=== PATIENT | male | born 1960 | race Caucasian/White ===

== ENCOUNTER 2018-02-03 10:00 | Emergency (ER) | payer OTHER ==
[~2018-02-03] VITALS: Ht 177.8 cm; Wt 74.8 kg
[2018-02-03] MEDS ORDERED: LUPRON IM (10:27)
[2018-02-03 12:26] VITALS: BP 149/90
== END 2018-02-03 12:00 | disposition home or self-care (01) ==
LOC: ER 10:00
DX: S60.221A Contusion of right hand, initial encounter (principal); Z85.46 Personal history of malignant neoplasm of prostate; Z90.79 Acquired absence of other genital organ(s); V03.90XA Pedestrian on foot injured in collision with car, pick-up truck or van, unspecified whether traffic or nontraffic accident, initial encounter; Y92.481 Parking lot as the place of occurrence of the external cause; Y93.01 Activity, walking, marching and hiking; Y99.8 Other external cause status

== ENCOUNTER 2020-05-06 19:32 | Emergency (ER) | payer BC, OTHER ==
[~2020-05-06] VITALS: Ht 177.8 cm; Wt 77.1 kg
[~2020-05-06 19:32] MED LIST changes: -DIPHENHIST50 MG PO; -PEPCID20 MG PO
[2020-05-06] MEDS ORDERED: PEPCID20 MG PO (21:44)
[2020-05-06] MEDS ORDERED: DIPHENHIST50 MG PO (21:44)
[2020-05-06 22:11] VITALS: BP 127/76
== END 2020-05-06 22:13 | disposition home or self-care (01) ==
LOC: ER 19:32
DX: A46 Erysipelas (principal); Z79.2 Long term (current) use of antibiotics

== ENCOUNTER → 2020-05-06 | Emergency (ER) | payer BC ==
[~2020-05-06] VITALS: Ht 177.8 cm; Wt 77.1 kg
[~2020-05-06] MED LIST: DIPHENHIST50 MG PO; DOXYCYCLINE 10100 MG PO; LUPRON IM; PEPCID20 MG PO
[2020-05-06 12:12] VITALS: BP 128/88
== END ==
LOC: ER 09:24
DX: L03.211 Cellulitis of face (principal)

== ENCOUNTER → 2021-02-27 | Day surgery (SDC) | payer BC, OTHER ==
[~2021-02-27] VITALS: Ht 177.8 cm; Wt 74.8 kg
[~2021-02-27] MED LIST changes: +DIPHENHIST50 MG PO; +HYDROCODON-ACE1 EAC7 PO; +PEPCID20 MG PO; +VITAMIN C500 M2 PO; +VITAMIN D325 MC3 PO
--- NOTE | ~2021-02-27 | O ---
[facility] [place] [address] OPERATIVE REPORT Name: MAREK DOSS Room #: REG [facility]..#: [id number] Admission: 02/27/21 Attend Phys: Etienne Meza MD Discharge: Date of : 60 Report #: [id number] THIS REPORT FOR: cc: Fabian Durand MD, Troy A. MD Chu,Etienne Crowder MD ~ DATE OF SERVICE: 02/27/2021 PREOPERATIVE DIAGNOSIS: Symptomatic bilateral inguinal hernia, right greater than the left. 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 SURGEON: Etienne Meza MD PROCEDURE PERFORMED: Attempted properitoneal repair of bilateral inguinal hernia converted to a transabdominal laparoscopic repair with mesh. ANESTHESIA: General. COMPLICATIONS: None. ESTIMATED BLOOD LOSS: 20 mL PROCEDURE NOTE: With the patient under general anesthesia, a Harkins catheter was placed. A 12 coude tip was used without difficulty. Preoperative antibiotic was given. Abdomen was prepped and draped in sterile fashion. Timeout was performed. A transverse incision was made about 2 cm in size adjacent to the umbilicus on the right. The anterior fascia was identified. The anterior fascia was incised transversely. The muscle was spread. This area was easily. A balloon trocar was then placed between the muscle and the posterior fascia. A 5 mm trocar was placed about an inch and half below the umbilicus. This was placed into the properitoneal space. Properitoneal dissection was then carried out. It was noted the properitoneal space was difficult to open due to his prior surgery. There is likely a sheet of scar tissue present. I was able to identify the right epigastric vessel, small portion of it and I was able to dissect the wall laterally to this without difficulty. A second 5 mm trocar was placed laterally on the right side using the 2 instruments and the dissection of the properitoneal space was carried out. Again, extensive scar tissue had to be divided. The patient dissected on the left side and there was no direct defect on either side. The patient suspected to have indirect hernias clinically even. The left side had scar tissue, but to a lesser degree. I then came back over to the right side to identify the indirect sac and the hernia sac, parts was pretty thin anteriorly, especially and the hernia sac was opened. At this point, with the amount of scar tissue [address] [address] OPERATIVE REPORT Name: MAREK DOSS Room #: REG [facility] Tatiana#: [id number] Admission: 02/27/21 Attend Phys: Etienne Meza MD Discharge: Date of : 60 Report #: [id number] and difficulty to identify things, I decided to try a transabdominal approach. The 11 mm balloon trocar was changed to a 12 mm balloon trocar, placed under visualization into the peritoneal cavity. There was air inside the peritoneal cavity. At this point, no harm to underlying tissue. A 10 mm 30-degree scope was then used. The patient did have bilateral indirect hernia on the right side. The hernia is not smooth, fairly bumpy consistent with scar tissue. The left side is fairly smooth edges. The peritoneum was opened bilaterally and the dissection was then carried out in the properitoneal space back into the space where it was before. The epigastric vessel on the left is a scar to the hernia sac and I could not separate it, went ahead and clipped it both the artery and the vein, so I can get to the sac. The sac was found and the sac was able to be reduced. The cord structure was skeletonized on the right. I did open up the inferior tissue to allow the mesh, but pretty superficially did not go down near the previous bladder surgery. I can feel the pubic bone, but never did try to expose it. On the right side, the hernia sac was more scarred and very thickened. I decided to go ahead at this point transect the hernia sac. The hernia sac was brought down and then started to opened it transversely, starting anterior, the posterior part was fairly difficult as it was fused to the cord structure. Again, the inferior epigastric vessel on the right side was also fused to the cord structure and I had and then had isolated and clipped it off, so I can get to the cord. No bleeding was encountered during this. The hernia sac was divided in total. Again, the anterior part and the most posterior part was difficult due to the scarring to the cord structure. The rest of it was able to be free from the cord. The area where the sac is stuck on the cord is fairly low, probably about an inch and half below the internal ring. At this point, dissection was felt to be completed for the mesh. A 3DMax lightweight mesh was placed bilaterally and this was placed in the properitoneal space. This was tacked to the inferomedially to the where it feels like the Rayray's ligament. Then, superiorly to the rectus muscle, laterally to the wall. The right sided 3DMax large-sized was also used. This covered the internal ring well and the divided hernia sac from it. Mesh was tacked inferomedially to Rayray's ligament, superomedially to the rectus muscle, laterally to the wall. The both mesh opened up and seated well. At this point, the peritoneum was closed with a 3-0 Vicryl running sutures. The bowel was examined. There was no harm to the bowel. Irrigation was performed and irrigation was aspirated out. Trocars then removed. The fact CO2 was evacuated as much as possible. The incision made adjacent to the umbilicus was closed. The anterior fascia was brought together with 0 Vicryl [id number] x2. The skin was then closed with a 5-0 PDS. Steri-Strip, Band-Aids applied. The patient tolerated the procedure well of the procedure. Harkins catheter was removed. Urine is clear looking. By: [id number] Etienne Meza MD /nt
[2021-02-27 12:02] VITALS: BP 151/91
[2021-02-27 12:06] LABS: HEMATOCRIT 45.5 % (42.0-52.0); HEMOGLOBIN 15.2 gm/dL (14.0-18.0)
--- NOTE | 2021-02-27 12:54 | EKG ---
[address] [address] ELECTROCARDIOGRAM REPORT Name: MAREK DOSS Room #: REG [facility].R.#: [id number] Admission: 02/27/21 Attend Phys: Etienne Meza MD Discharge: Date of : 60 Report #: [id number] [facility] Test Date: 2021-02-27 Test Time: 11:46:49 Pat Name: MAREK DOSS Department: Room: Gender: M Reporter Anchor: DAWOOD : 1960 Requested By: Etienne Meza Order Number: [id number] MD: Jerod Underwood Measurements Intervals [place] Rate: 73 P: 57 WV: 182 QRS: 39 QRSD: 89 T: 34 QT: 396 QTc: 437 Interpretive Statements Sinus rhythm No previous ECG available for comparison Electronically Signed On 02-27-2021 12:54:36 [facility] [employer] by Jerod Underwood [email or web address] <ELECTRONICALLY SIGNED> By: Jerod Underwood MD, [facility] 02/27/21 1254 [id number] Jerod Underwood MD, FACC /EPI
[2021-02-27 18:44] VITALS: BP 151/91
== END | disposition home or self-care (01) ==
LOC: OR 10:20
PROVIDERS: ATTEND Surgery
DX: K40.20 Bilateral inguinal hernia, without obstruction or gangrene, not specified as recurrent (principal); Z98.890 Other specified postprocedural states; Z85.46 Personal history of malignant neoplasm of prostate; Z20.822 Contact with and (suspected) exposure to COVID-19
CPT/HCPCS: 50010; 50101; 50411; 50455; 50507; 50555; 50848; 50984; 51489; 52265; 53065; 53307; 53314; 55245; 56462; 56524; 56525; 56526; 58574; 62110; 62900; 70005